=== PATIENT | female | born 1980 | race Caucasian/White ===

== ENCOUNTER 2016-10-29 08:56 | Observation (INO) | payer MEDICAID ==
[~2016-10-29] VITALS: Ht 167.6 cm; Wt 93.9 kg
[~2016-10-29 08:56] MED LIST: DIPH25CA83 PO; PREN-88 PO
[2016-10-29] MEDS ORDERED: PREN-88 PO (09:16)
[2016-10-29] MEDS ORDERED: DIPH25CA83 PO (09:16)
== END 2016-10-29 10:50 | disposition home or self-care (01) ==
LOC: L&D 08:56
PROVIDERS: ADMIT Specialist; ATTEND Specialist
DX: O26.893 Other specified pregnancy related conditions, third trimester (principal); R05 Cough; R10.9 Unspecified abdominal pain; Z3A.37 37 weeks gestation of pregnancy
CPT/HCPCS: 99281; G0378

== ENCOUNTER 2016-11-10 19:06 | Observation (INO) | payer MEDICAID ==
[~2016-11-10] VITALS: Ht 167.6 cm; Wt 95.7 kg
== END 2016-11-10 20:15 | disposition home or self-care (01) ==
LOC: L&D 19:06
PROVIDERS: ADMIT Specialist; ATTEND Specialist
DX: O26.893 Other specified pregnancy related conditions, third trimester (principal); R10.9 Unspecified abdominal pain; R05 Cough; O62.9 Abnormality of forces of labor, unspecified; Z3A.39 39 weeks gestation of pregnancy
CPT/HCPCS: 99281; G0378

== ENCOUNTER 2016-11-25 05:55 | Observation (INO) | payer MEDICAID ==
[~2016-11-25] VITALS: Ht 167.6 cm; Wt 95.3 kg
[2016-11-25] MEDS ORDERED: PREN-88 PO (06:20)
== END 2016-11-25 06:40 | disposition left against medical advice (07) ==
LOC: L&D 05:55
PROVIDERS: ADMIT Specialist; ATTEND Specialist
DX: O62.9 Abnormality of forces of labor, unspecified (principal); O48.0 Post-term pregnancy; Z3A.41 41 weeks gestation of pregnancy
CPT/HCPCS: 99281; G0378; G0379

== ENCOUNTER 2017-12-23 20:42 | Emergency (ER) | payer MEDICAID ==
[~2017-12-23] VITALS: Ht 172.7 cm; Wt 73.0 kg
[2017-12-23] MEDS ORDERED: SODIUM CHLORIDE 0.9% 1,000 ML IV ONE (22:30)
[2017-12-23] MEDS ORDERED: LORAZEPAM 2MG/ML CPJ IM ONE (22:30)
[2017-12-23 22:38] LABS: BASOPHILS % 0.7 % (0.0-2.0); EOSINOPHILS % 0.3 % (0.0-5.0); HEMATOCRIT. 40.9 % (36.0-48.0); HEMOGLOBIN. 14.1 g/dL (12.0-16.0); LYMPHOCYTES % 12.9 % (20.0-50.0); MEAN CORPUSCULAR HEMOGLOBIN 30.8 pg (28.0-32.0); MEAN CORPUSCULAR VOLUME 89.5 fL (81.0-99.0); MEAN PLATELET VOLUME 8.1 fl (7.4-10.4); MONOCYTES % 10.7 % (2.0-8.0); NEUTROPHILS % 75.4 % (40.0-76.0); PLATELET 294 x1000/uL (130-400); RED BLOOD CELL COUNT 4.57 mill/uL (4.2-5.4); RED CELL DISTRIBUTION WIDTH 14.6 % (11.6-14.6)
[2017-12-23 22:44] LABS: CHLORIDE 111 mEq/L (98-107)
[2017-12-23 22:49] LABS: ETHANOL BLOOD < 10 mg/dL
[2017-12-23] MEDS ORDERED: TETANUS, DIPHTHERIA, PERTUSSIS VAC/PF 0.5ML (>7YR OLD) IM ONE (23:45)
[2017-12-23] MEDS ORDERED: LIDOCAINE HCL 1% 20ML VIAL (Pyxis) INJ MC ONE (23:45)
[2017-12-23] MEDS ORDERED: BACITRACIN ZINC OINT UDPKT TOP ONE (23:45)
[2017-12-24 00:03] LABS: CLARITY URINE CLOUDY (CLEAR); COLOR URINE DARK YELLOW (YELLOW); KETONES URINE 2+ (NEGATIVE); LEUKOCYTE ESTERASE URINE TRACE (NEGATIVE); NITRITE URINE NEGATIVE (NEGATIVE); OCCULT BLOOD URINE TRACE (NEGATIVE); PH URINE 5.5 (4.5-8.0); PROTEIN URINE 2+ (NEGATIVE); SPECIFIC GRAVITY URINE 1.036 (1.005-1.030)
[2017-12-24 00:47] LABS: *BARBITURATES SCREEN URINE NEGATIVE (NEGATIVE)
[2017-12-24 00:48] LABS: *BENZODIAZEPINES SCREEN URINE NEGATIVE (NEGATIVE); *COCAINE SCREEN URINE NEGATIVE (NEGATIVE); METHADONE URINE SCREEN NEGATIVE (NEGATIVE); OPIATES URINE SCREEN NEGATIVE (NEGATIVE); PHENCYCLIDINE URINE SCREEN NEGATIVE (NEGATIVE)
[2017-12-24 00:54] LABS: *AMPHETAMINES SCREEN URINE PRESUMTIVE POSITIVE (NEGATIVE); CANNABINOID URINE SCREEN PRESUMTIVE POSITIVE (NEGATIVE)
[2017-12-24 06:12] VITALS: BP 101/54
[2017-12-24] MEDS ORDERED: CEPHALEXIN 500MG CAPSULE PO ONE (07:00)
== END 2017-12-24 14:00 | disposition home or self-care (01) ==
LOC: ER 20:59
DX: S61.511A Laceration without foreign body of right wrist, initial encounter (principal); S61.512A Laceration without foreign body of left wrist, initial encounter; F15.10 Other stimulant abuse, uncomplicated; F17.200 Nicotine dependence, unspecified, uncomplicated; F12.10 Cannabis abuse, uncomplicated; X78.8XXA Intentional self-harm by other sharp object, initial encounter; Y93.89 Activity, other specified; Y92.89 Other specified places as the place of occurrence of the external cause; Y99.8 Other external cause status; Z98.890 Other specified postprocedural states
CPT/HCPCS: 12005; 36415; 80053; 80305; 80307; 80329; 81003; 85025; 90471; 90715; 93005; 96360; 96361; 96372; 99285; G0482; J2060; J3490; J7030

== ENCOUNTER 2017-12-31 13:38 | Emergency (ER) | payer MEDICAID ==
[2017-12-31 13:50] VITALS: BP 103/62
[2017-12-31] MEDS ORDERED: BACITRACIN ZINC OINT UDPKT TOP ONE (14:00)
== END 2017-12-31 15:48 | disposition home or self-care (01) ==
LOC: ER 15:25
DX: S51.812D Laceration without foreign body of left forearm, subsequent encounter (principal); F17.200 Nicotine dependence, unspecified, uncomplicated; F12.10 Cannabis abuse, uncomplicated; F31.9 Bipolar disorder, unspecified; X58.XXXD Exposure to other specified factors, subsequent encounter; Z98.890 Other specified postprocedural states
CPT/HCPCS: 99283; Z7610

== ENCOUNTER 2018-03-17 22:13 | Emergency (ER) | payer MEDICAID ==
[~2018-03-17] VITALS: Ht 167.6 cm; Wt 73.0 kg
[2018-03-17 23:10] VITALS: BP 104/58
[2018-03-17 23:54] LABS: CLARITY URINE CLEAR (CLEAR); COLOR URINE YELLOW (YELLOW); KETONES URINE TRACE (NEGATIVE); LEUKOCYTE ESTERASE URINE 2+ (NEGATIVE); NITRITE URINE NEGATIVE (NEGATIVE); OCCULT BLOOD URINE NEGATIVE (NEGATIVE); PH URINE 5.5 (4.5-8.0); PROTEIN URINE NEGATIVE (NEGATIVE)
== END 2018-03-18 06:05 | disposition left against medical advice (07) ==
LOC: ER 22:13
DX: Z53.21 Procedure and treatment not carried out due to patient leaving prior to being seen by health care provider (principal)
CPT/HCPCS: 81003; 81025

== ENCOUNTER 2018-03-25 19:49 | Emergency (ER) | payer MEDICAID ==
[~2018-03-25] VITALS: Ht 167.6 cm; Wt 81.8 kg
[2018-03-25 21:35] LABS: CLARITY URINE CLOUDY (CLEAR); COLOR URINE YELLOW (YELLOW); KETONES URINE TRACE (NEGATIVE); LEUKOCYTE ESTERASE URINE NEGATIVE (NEGATIVE); NITRITE URINE NEGATIVE (NEGATIVE); OCCULT BLOOD URINE NEGATIVE (NEGATIVE); PH URINE 5.5 (4.5-8.0); PROTEIN URINE NEGATIVE (NEGATIVE)
[2018-03-25 23:38] LABS: BASOPHILS % 0.6 % (0.0-2.0); EOSINOPHILS % 0.9 % (0.0-5.0); HEMATOCRIT. 38.7 % (36.0-48.0); HEMOGLOBIN. 13.1 g/dL (12.0-16.0); LYMPHOCYTES % 34.6 % (20.0-50.0); MEAN CORPUSCULAR VOLUME 88.6 fL (81.0-99.0); MEAN PLATELET VOLUME 8.5 fl (7.4-10.4); MONOCYTES % 7.4 % (2.0-8.0); NEUTROPHILS % 56.5 % (40.0-76.0); PLATELET 256 x1000/uL (130-400); RED BLOOD CELL COUNT 4.36 mill/uL (4.2-5.4); RED CELL DISTRIBUTION WIDTH 14.1 % (11.6-14.6)
[2018-03-25 23:42] LABS: CHLORIDE 106 mEq/L (98-107)
[2018-03-25 23:51] LABS: B-HCG QUANTITATIVE 211 mIU/mL (<3)
[2018-03-26 01:58] VITALS: BP 105/63
== END 2018-03-26 02:03 | disposition home or self-care (01) ==
LOC: ER 19:49
DX: O03.9 Complete or unspecified spontaneous abortion without complication (principal); O99.330 Smoking (tobacco) complicating pregnancy, unspecified trimester; F17.200 Nicotine dependence, unspecified, uncomplicated; Z3A.00 Weeks of gestation of pregnancy not specified; Z98.890 Other specified postprocedural states
CPT/HCPCS: 36415; 76830; 76856; 80048; 81003; 81025; 84702; 85025; 86850; 86900; 96372; 99285

== ENCOUNTER 2018-04-27 18:15 | Emergency (ER) | payer MEDICAID ==
[~2018-04-27] VITALS: Ht 167.6 cm; Wt 82.0 kg
[2018-04-27 23:41] LABS: CLARITY URINE CLEAR (CLEAR); COLOR URINE YELLOW (YELLOW); KETONES URINE NEGATIVE (NEGATIVE); LEUKOCYTE ESTERASE URINE 2+ (NEGATIVE); NITRITE URINE NEGATIVE (NEGATIVE); OCCULT BLOOD URINE NEGATIVE (NEGATIVE); PH URINE 5.5 (4.5-8.0); PROTEIN URINE NEGATIVE (NEGATIVE); SPECIFIC GRAVITY URINE 1.019 (1.005-1.030); UROBILINOGEN URINE 0.2 E.U./dL (0.2-1.0)
[2018-04-28 00:08] LABS: BASOPHILS % 0.2 % (0.0-2.0); EOSINOPHILS % 0.9 % (0.0-5.0); HEMATOCRIT. 39.9 % (36.0-48.0); HEMOGLOBIN. 13.7 g/dL (12.0-16.0); LYMPHOCYTES % 33.8 % (20.0-50.0); MEAN CORPUSCULAR HEMOGLOBIN 30.8 pg (28.0-32.0); MEAN CORPUSCULAR VOLUME 89.4 fL (81.0-99.0); MEAN PLATELET VOLUME 8.6 fl (7.4-10.4); MONOCYTES % 7.2 % (2.0-8.0); NEUTROPHILS % 57.9 % (40.0-76.0); PLATELET 277 x1000/uL (130-400); RED BLOOD CELL COUNT 4.46 mill/uL (4.2-5.4); RED CELL DISTRIBUTION WIDTH 14.8 % (11.6-14.6)
[2018-04-28 00:12] LABS: CHLORIDE 105 mEq/L (98-107)
[2018-04-28 00:30] LABS: B-HCG QUANTITATIVE 939 mIU/mL (<3)
[2018-04-28 02:11] VITALS: BP 100/55
== END 2018-04-28 02:12 | disposition home or self-care (01) ==
LOC: ER 18:15
DX: O03.4 Incomplete spontaneous abortion without complication (principal); F17.200 Nicotine dependence, unspecified, uncomplicated; Z98.890 Other specified postprocedural states
CPT/HCPCS: 36415; 76801; 80053; 81003; 84702; 85025; 86850; 86900; 99285

== ENCOUNTER 2019-05-24 12:55 | Emergency (ER) | payer MEDICAID, OTHER ==
[~2019-05-24] VITALS: Ht 167.6 cm; Wt 95.0 kg
[2019-05-24] MEDS ORDERED: PREDNISONE 20MG TABLET PO STA (13:54)
[2019-05-24] MEDS ORDERED: ALBUTEROL (0.083%) 2.5MG/3ML NEB HHN STA (13:54)
[2019-05-24] MEDS ORDERED: IPRATROPIUM BROMIDE (0.02%) 0.5MG/2.5ML NEB HHN STA (13:54)
[2019-05-24 14:31] LABS: CHLORIDE 111 mEq/L (98-107)
[2019-05-24 14:40] LABS: BASOPHILS % 0.6 % (0.0-2.0); EOSINOPHILS % 2.1 % (0.0-5.0); HEMATOCRIT. 40.3 % (36.0-48.0); HEMOGLOBIN. 13.7 g/dL (12.0-16.0); MEAN CORPUSCULAR HEMOGLOBIN 30.1 pg (28.0-32.0); MEAN CORPUSCULAR VOLUME 88.8 fL (81.0-99.0); MEAN PLATELET VOLUME 8.6 fl (7.4-10.4); MONOCYTES % 9.3 % (2.0-8.0); PLATELET 287 x1000/uL (130-400); RED BLOOD CELL COUNT 4.54 mill/uL (4.2-5.4); RED CELL DISTRIBUTION WIDTH 15.3 % (11.6-14.6)
[2019-05-24 16:48] VITALS: BP 120/84
== END 2019-05-24 16:50 | disposition home or self-care (01) ==
LOC: ER 12:55
DX: J44.1 Chronic obstructive pulmonary disease with (acute) exacerbation (principal); R51 Headache; F31.9 Bipolar disorder, unspecified; F12.10 Cannabis abuse, uncomplicated; F17.210 Nicotine dependence, cigarettes, uncomplicated; Z98.890 Other specified postprocedural states
CPT/HCPCS: 36415; 71045; 80053; 83880; 84484; 85025; 93005; 94640; 99284; 99406; J7512; J7611; Z7610

== ENCOUNTER 2019-07-26 18:24 | Emergency (ER) | payer MEDICAID ==
[~2019-07-26] VITALS: Ht 167.6 cm; Wt 90.0 kg
[2019-07-26 18:39] VITALS: BP 114/73
== END 2019-07-26 19:11 | disposition home or self-care (01) ==
LOC: ER 18:24
DX: R11.10 Vomiting, unspecified (principal); F12.10 Cannabis abuse, uncomplicated; F31.9 Bipolar disorder, unspecified; Z79.899 Other long term (current) drug therapy; Z98.890 Other specified postprocedural states
CPT/HCPCS: 81025; 99282

== ENCOUNTER 2020-01-28 09:05 | Emergency (ER) | payer MEDICAID ==
[~2020-01-28] VITALS: Ht 167.6 cm; Wt 92.0 kg
[2020-01-28] MEDS ORDERED: KETOROLAC 60MG/2ML VIAL IM STA (10:07)
[2020-01-28 10:44] VITALS: BP 111/65
== END 2020-01-28 11:42 | disposition home or self-care (01) ==
LOC: ER 09:21
DX: S93.401A Sprain of unspecified ligament of right ankle, initial encounter (principal); W01.0XXA Fall on same level from slipping, tripping and stumbling without subsequent striking against object, initial encounter; Y93.01 Activity, walking, marching and hiking; Y92.488 Other paved roadways as the place of occurrence of the external cause
CPT/HCPCS: 73610; 96372; 99283; J1885

== ENCOUNTER 2020-04-24 19:20 | Emergency (ER) | payer MEDICAID ==
[~2020-04-24] VITALS: Ht 167.6 cm; Wt 88.7 kg
[2020-04-24] MEDS ORDERED: ALBUTEROL 6.7GM HFA INHALER ORI ONE (20:30)
[2020-04-24] MEDS ORDERED: AZITHROMYCIN 500 MG TABLET PO ONE (20:30)
[2020-04-24] MEDS ORDERED: PREDNISONE 20MG TABLET PO SCH (20:30)
[2020-04-25] VITALS: BP 124/79
== END 2020-04-25 00:05 | disposition home or self-care (01) ==
LOC: ER 19:20
DX: J44.1 Chronic obstructive pulmonary disease with (acute) exacerbation (principal); J45.901 Unspecified asthma with (acute) exacerbation; Z20.828 Contact with and (suspected) exposure to other viral communicable diseases; F12.10 Cannabis abuse, uncomplicated; F17.290 Nicotine dependence, other tobacco product, uncomplicated
CPT/HCPCS: 36415; 71045; 84484; 87426; 93005; 99285; 99406; J7512

== ENCOUNTER 2021-02-05 18:38 | Emergency (ER) | payer MEDICAID ==
[~2021-02-05] VITALS: Ht 165.1 cm; Wt 100.0 kg
[2021-02-05 18:42] VITALS: BP 138/86
== END 2021-02-05 19:30 | disposition left against medical advice (07) ==
LOC: ER 18:38
DX: F41.9 Anxiety disorder, unspecified (principal); F12.10 Cannabis abuse, uncomplicated; J44.1 Chronic obstructive pulmonary disease with (acute) exacerbation; Z90.49 Acquired absence of other specified parts of digestive tract
CPT/HCPCS: 99283

== ENCOUNTER 2021-09-20 10:42 | Emergency (ER) | payer MEDICAID ==
[~2021-09-20] VITALS: Ht 167.6 cm; Wt 84.0 kg
[2021-09-20 10:49] VITALS: BP 115/92
[2021-09-20] MEDS ORDERED: AMOXICILLIN/POTASSIUM CLAVULANATE 875/125MG TAB PO ONE (11:00)
[2021-09-20] MEDS ORDERED: TETANUS, DIPHTHERIA, PERTUSSIS VAC/PF 0.5ML (>10YR OLD) IM ONE (11:00)
[2021-09-20] MEDS ORDERED: BACITRACIN ZINC OINT UDPKT TOP ONE (11:00)
[2021-09-20] MEDS ORDERED: ACETAMINOPHEN 325MG TABLET PO ONE (11:30)
[2021-09-20] MEDS ORDERED: TOPUD MT (11:59)
[2021-09-20] MEDS ORDERED: AMOX-424 MT (11:59)
== END 2021-09-20 12:17 | disposition home or self-care (01) ==
LOC: ER 11:02
DX: S21.231A Puncture wound without foreign body of right back wall of thorax without penetration into thoracic cavity, initial encounter (principal); Z98.890 Other specified postprocedural states; S27.9XXA Injury of unspecified intrathoracic organ, initial encounter; W50.3XXA Accidental bite by another person, initial encounter; Y93.89 Activity, other specified; Y92.89 Other specified places as the place of occurrence of the external cause; Y99.8 Other external cause status
CPT/HCPCS: 71046; 73060; 81025; 90471; 90715; 99284